=== PATIENT | male | born 1970 | race African-American/Black ===

== ENCOUNTER 2016-09-01 13:03 | Emergency (ER) | payer OTHER ==
[2016-09-01] MEDS ORDERED: ONDANSETRON 4 MG VIAL ONE (14:03)
[2016-09-01] MEDS ORDERED: DILAUDID 1 MG/ML AMP ONE ×2 (14:04→17:51)
[2016-09-01] MEDS ORDERED: KETOROLAC 30 MG/ML VIAL ONE (14:04)
== END 2016-09-01 18:35 | disposition home or self-care (01) ==
LOC: ER 13:03
DX: N20.1 Calculus of ureter (principal)
CPT/HCPCS: 36415; 74176; 80053; 81001; 83690; 85025; 96375; 96376